=== PATIENT | male | born 1985 ===

== ENCOUNTER 2020-11-09 00:15 | Emergency (ER) | payer BC ==
--- NOTE | 2020-11-09 01:25 | EDM.PDOC ---
ED HPI GENERAL MEDICAL PROBLEM - General Chief Complaint: Genitourinary Problem Stated Complaint: Right flank, abdominal and groin pain Time Seen by Provider: 11/09/20 00:15 Source of Information: Reports: Patient History Limitations: Reports: No Limitations - History of Present Illness INITIAL COMMENTS - FREE TEXT/NARRATIVE: Pt. presents to ER with complaints of R sided flank, abdomen, and groin pain. He states that the symptoms started shortly before coming to ER. Denies any previous discomfort like this in past. No history of kidney stones. Denies any blood in urine. Pt. states that initially pain was very severe. He states that he became sick to his stomach and vomited. Denies any fever or chills. No chest pain or shortness of breath. Pt. states that since urinating, the pain has improved significantly. He states that the pain on my exam was down to a 2-3. Denies any diaphoresis. Onset: Today Onset Date: 11/09/20 Location: Reports: Abdomen, Back Quality: Reports: Sharp Right flank, upper abdomen, right groin Pain Score (Numeric/FACES): 3 - Related Data Allergies Allergy/AdvReac Type Severity Reaction Status Date / Time No Known Allergies Allergy Verified 11/09/20 00:41 Home Meds: Home Meds . [Unable to Verify Home Med List] 11/09/20 [History] ED ROS GENERAL - Review of Systems Review Of Systems: See Below Constitutional: Reports: No Symptoms HEENT: Reports: No Symptoms Respiratory: Reports: No Symptoms Cardiovascular: Reports: No Symptoms Endocrine: Reports: No Symptoms GI/Abdominal: Reports: Abdominal Pain : Reports: Flank Pain, Other (groin pain). Denies: Discharge, Dysuria, Frequency, Hematuria, Urgency, Urinary Retention Musculoskeletal: Reports: No Symptoms Skin: Reports: No Symptoms Neurological: Reports: No Symptoms Psychiatric: Reports: No Symptoms Hematologic/Lymphatic: Reports: No Symptoms Immunologic: Reports: No Symptoms ED EXAM, GENERAL - Physical Exam Exam: See Below Exam Limited By: No Limitations General Appearance: Alert, WD/WN, No Apparent Distress Respiratory/Chest: No Respiratory Distress, No Accessory Muscle Use GI/Abdominal: Soft, Non-Tender, No Organomegaly, No Distention, No Mass Course - Vital Signs Last Recorded V/S: Last Vital Signs Temp 37.0 C 11/09/20 00:15 Pulse 61 11/09/20 00:15 Resp 16 11/09/20 00:15 BP 123/89 11/09/20 00:15 Pulse Ox 97 11/09/20 00:15 - Orders/Labs/Meds Labs: Laboratory Tests 11/09/20 Range/Units 00:20 Urine Color Yellow (YELLOW) Urine Appearance Clear (CLEAR) Urine pH 5.5 (5.0-8.0) Ur Specific [place] >=1.030 Urine Protein Negative (NEGATIVE) mg/dL Urine Glucose (UA) Negative (NEGATIVE) mg/dL Urine Ketones Negative (NEGATIVE) mg/dL Urine Occult Blood Moderate H (NEGATIVE) Urine Nitrite Negative (NEGATIVE) Urine Bilirubin Negative (NEGATIVE) Urine Urobilinogen 0.2 (0.2) EU/dL Ur Leukocyte Esterase Negative (NEGATIVE) U Hyaline Cast (Auto) Rare Urine RBC 20-30 H (NOT SEEN) /HPF Urine WBC 0-5 (NOT SEEN) /HPF Ur Squamous Epith Cells Rare (NEGATIVE) /HPF Urine Bacteria Not seen (NEGATIVE) /HPF Urine Mucus Few H (NEGATIVE) /LPF - Re-Assessments/Exams Free Text/Narrative Re-Assessment/Exam: Pt. states that the the discomfort is almost completely resolved without any intervention. Departure - Departure Time of Disposition: 01:00 Disposition: Home, Self-Care 01 Clinical Impression: Kidney stone - Discharge Information Instructions: Kidney Stones, [id number], Dehydration, Adult, [id number] Referrals: PCP,Unobtain [Primary Care Provider] - Forms: ED Department Discharge Additional Instructions: Strain urine. Collect any stones and return them to clinic for analysis. Home to rest. We will hold off doing a CT scan at this time since your symptoms are improving. Return to ER or follow-up in clinic if the pain gets worse. Ibuprofen as needed for pain. Your urine is very concentrated. Increase your intake of water. Sepsis Event Note (ED) - Evaluation Sepsis Screening Result: No Definite Risk - Focused Exam Vital Signs: Vital Signs Temp Pulse Resp BP Pulse Ox 11/09/20 00:15 37.0 C 61 16 123/89 97 - Problem List Review Problem List Initiated/Reviewed/Updated: Yes - Assessment/Plan Plan: Cause of discomfort likely due to kidney stone. He seems to have passed it. We will have him strain his urine. His urine is extremely concentrated. Advised to increase intake of fluids. Since the pain is better, we will hold off on performing a CT at this time. Advised to increase fluids. Strain urine, collect stones, and bring the stones in for analysis. Recheck in clinic in 7-10 days, sooner if not improving.
== END 2020-11-09 00:53 | disposition home or self-care (01) ==
LOC: VM.ED 00:15
DX: N20.0 Calculus of kidney (principal)
CPT/HCPCS: 81001; 99283; 99284